=== PATIENT | female | born 1975 | race Caucasian/White ===

== ENCOUNTER 2018-03-29 23:13 | Emergency (ER) | payer OTHER ==
[~2018-03-29] VITALS: Ht 160 cm; Wt 78.5 kg
[2018-03-29 23:27] VITALS: Ht 160 cm; Wt 78.5 kg
[2018-03-30 02:00] VITALS: BP 116/78
== END 2018-03-30 02:00 | disposition home or self-care (01) ==
LOC: ED 23:13
DX: S92.512A Displaced fracture of proximal phalanx of left lesser toe(s), initial encounter for closed fracture (principal); Z88.6 Allergy status to analgesic agent; Z88.5 Allergy status to narcotic agent; W22.8XXA Striking against or struck by other objects, initial encounter; Y93.89 Activity, other specified; Y92.89 Other specified places as the place of occurrence of the external cause; Y99.8 Other external cause status
CPT/HCPCS: J2001; Q0092